=== PATIENT | male | born 1970 | race Caucasian/White ===

== ENCOUNTER 2020-03-19 14:00 | Outpatient (REF) | payer OTHER, SELFPAY | END 2020-03-19 14:01 | disposition home or self-care (01) | LOC: HO.LAB 14:00 | PROVIDERS: Visit Provider Internal Medicine | DX: Z20.828 Contact with and (suspected) exposure to other viral communicable diseases (principal) | CPT/HCPCS: U0003 ==

== ENCOUNTER 2020-03-22 08:18 | Outpatient (REF) | payer OTHER, SELFPAY | END 2020-03-22 08:19 | disposition home or self-care (01) | LOC: HO.LAB 08:18 | PROVIDERS: Visit Provider Internal Medicine | DX: Z20.828 Contact with and (suspected) exposure to other viral communicable diseases (principal) | CPT/HCPCS: U0003 ==

== ENCOUNTER 2020-04-14 08:28 | Outpatient (REF) | payer OTHER, SELFPAY | END 2020-04-14 08:29 | disposition home or self-care (01) | LOC: HO.LAB 08:28 | PROVIDERS: Visit Provider Internal Medicine | DX: Z20.828 Contact with and (suspected) exposure to other viral communicable diseases (principal) | CPT/HCPCS: C9803; U0003 ==

== ENCOUNTER 2020-05-22 11:11 | Outpatient (REF) | payer OTHER, SELFPAY | END 2020-05-22 11:12 | disposition home or self-care (01) | LOC: HO.LAB 11:11 | PROVIDERS: Visit Provider Internal Medicine | DX: Z20.828 Contact with and (suspected) exposure to other viral communicable diseases (principal) | CPT/HCPCS: C9803; U0003 ==